=== PATIENT | female | born 1965 | race Caucasian/White ===

== ENCOUNTER → 2020-11-26 | Outpatient (REF) | LOC: LAB 16:02 | DX: Z02.83 Encounter for blood-alcohol and blood-drug test (principal) ==

== ENCOUNTER → 2021-02-16 | Outpatient (CLI) | payer BC ==
[2021-02-16 12:18] LABS: BASO # 0.05 (0.02-0.10); EOS # 0.03 (0.04-0.40); EOS % 0.4 % (1.0-5.0); HEMATOCRIT 42.9 % (37.0-47.0); LYMPH# 1.16 (1.50-4.00); MEAN CELL VOLUME 91 fl (78-100); MEAN CORPUSCULAR HEMOGLOBIN 30 pg (27-31); MEAN CORPUSCULAR HGB CONC 33 g/dL (33-37); MEAN PLATELET VOLUME 9.4 fl (7.4-10.4); MONO # 0.14 (0.20-0.80); NEU # 7.14 (1.40-6.50); PLATELET COUNT 269 K/mm3 (130-400); RED CELL DISTRIBUTION WIDTH 13.8 % (11.5-14.5); WHITE BLOOD COUNT 8.5 K/mm3 (4.8-10.8)
[2021-02-16 12:22] LABS: POTASSIUM 4.1 mmol/L (3.5-5.1)
[2021-02-16 12:24] LABS: CALCIUM 9.9 mg/dL (8.3-10.5)
[2021-02-16 12:25] LABS: TOTAL PROTEIN 7.3 g/dL (6.4-8.3)
[2021-02-16 12:27] LABS: TOTAL BILIRUBIN 0.5 mg/dL (0.2-1.2)
== END ==
LOC: LAB 11:40
PROVIDERS: Nurse Practitioner
DX: R06.2 Wheezing (principal); R05 Cough

== ENCOUNTER → 2022-03-16 | Outpatient (CLI) | payer BC ==
[2022-03-16 14:30] LABS: BASO # 0.07 K/mm3 (0.02-0.10); EOS % 2.5 % (1.0-5.0); HEMATOCRIT 41.1 % (37.0-47.0); HEMOGLOBIN 13.6 g/dL (12.5-16.0); LYMPH# 3.08 K/mm3 (1.50-4.00); MEAN CELL VOLUME 91 fl (78-100); MEAN CORPUSCULAR HEMOGLOBIN 30 pg (27-31); MEAN CORPUSCULAR HGB CONC 33 g/dL (33-37); MEAN PLATELET VOLUME 9.6 fl (7.4-10.4); MONO # 0.57 K/mm3 (0.20-0.80); NEU # 3.94 K/mm3 (1.40-6.50); PLATELET COUNT 259 K/mm3 (130-400); RED BLOOD COUNT 4.53 M/mm3 (4.10-5.30); RED CELL DISTRIBUTION WIDTH 13.9 % (11.5-14.5); WHITE BLOOD COUNT 7.9 K/mm3 (4.8-10.8)
[2022-03-16 14:39] LABS: ALBUMIN 4.2 g/dL (3.5-5.0)
[2022-03-16 14:40] LABS: CALCIUM 9.9 mg/dL (8.3-10.5)
[2022-03-16 14:41] LABS: TOTAL PROTEIN 7.3 g/dL (6.4-8.3)
[2022-03-16 14:43] LABS: TOTAL BILIRUBIN 0.3 mg/dL (0.2-1.2)
== END ==
LOC: LAB 14:01
PROVIDERS: Nurse Practitioner Family
DX: S99.922A Unspecified injury of left foot, initial encounter (principal); M79.89 Other specified soft tissue disorders; X58.XXXA Exposure to other specified factors, initial encounter

== ENCOUNTER 2022-09-22 13:49 | Emergency (ER) | payer OTHER ==
[~2022-09-22] VITALS: Ht 160 cm; Wt 81.4 kg
[2022-09-22 15:34] VITALS: BP 159/104
== END 2022-09-22 15:41 | disposition home or self-care (01) ==
LOC: ED 13:49
DX: T65.891A Toxic effect of other specified substances, accidental (unintentional), initial encounter (principal); T26.91XA Corrosion of right eye and adnexa, part unspecified, initial encounter